=== PATIENT | female | born 1990 | race Caucasian/White ===

== ENCOUNTER 2023-08-01 11:56 | Day surgery (SDC) | payer MEDICAID ==
[~2023-08-01] VITALS: Ht 162.6 cm; Wt 63.5 kg
[2023-08-01 12:26] LABS: HCG,QUAL RESULT NEGATIVE (NEGATIVE)
[2023-08-01] MEDS ORDERED: DIPHENHYDRAMINE INJ 50 MG/ML VIAL ONE (13:07)
[2023-08-01] MEDS ORDERED: fentaNYL CITRATE/PF 100 MCG/2 ML AMP ONE (13:07)
[2023-08-01 13:32] VITALS: O2SAT 100
[2023-08-01] MEDS: MIDAZOLAM HCL 5 MG/5 ML VIAL ONE ×2 (13:51→13:55)
[2023-08-01 16:32] VITALS: BP_SYST 120; PULSE 75; RESP 16
== END 2023-08-01 14:50 | disposition home or self-care (01) ==
LOC: SDS 11:56 → SMU 11:58 → SDS 14:50
PROVIDERS: ATTEND Internal Medicine
DX: M51.16 Intervertebral disc disorders with radiculopathy, lumbar region (principal); M51.9 Unspecified thoracic, thoracolumbar and lumbosacral intervertebral disc disorder; D36.10 Benign neoplasm of peripheral nerves and autonomic nervous system, unspecified; M50.90 Cervical disc disorder, unspecified, unspecified cervical region; Z79.899 Other long term (current) drug therapy
CPT/HCPCS: 62323; 84703; J2250; J3010; 76000; J1200